=== PATIENT | male | born 1970 | race Caucasian/White ===

== ENCOUNTER 2020-07-09 06:51 | Outpatient (NON) | payer BC, SELFPAY ==
[2020-07-10 13:32] LABS: SARS-CoV-2 RNA PCR Negative
== END 2020-07-09 06:52 ==
LOC: ANHCOVIDDT 06:51
PROVIDERS: PCP Family Medicine; Visit Provider Physician Assistant
DX: Z20.828 Contact with and (suspected) exposure to other viral communicable diseases (principal); J02.9 Acute pharyngitis, unspecified; R53.83 Other fatigue
CPT/HCPCS: 87635; C9803; U0003

== ENCOUNTER 2020-11-17 08:42 | Emergency (ER) | payer BC, SELFPAY ==
[2020-11-17] VITALS (12 sets, daily range): BP systolic 135–159; BP diastolic 82–131; PULSE 55–77; RESP 16–31; TEMP 36.6; O2SAT 96–100
[2020-11-17 09:00] LABS: Basophils Absolute Auto 0.1 K/mm3 (0.0-0.1); Basophils Percent Auto 0.6 % (0.2-1.2); Eosinophils Absolute Auto 0.1 K/mm3 (0-0.3); Eosinophils Percent Auto 1.1 % (0-4.4); Hemoglobin 17.8 g/dL (14.0-18.0); Immature Granulocyte Absolute 0.04 K/mm3 (0.00-0.031); Immature Granulocyte Percent A 0.4 % (0-0.5); Lymphocytes Absolute Auto 2.11 K/mm3 (0.9-3.2); Lymphocytes Percent Auto 19.1 % (18.3-44.2); Mean Corpuscular HGB Conc 34.2 g/dl (32-36); Mean Corpuscular Hemoglobin 30.4 pg (26-34); Mean Corpuscular Volume 88.7 fl (80-100); Mean Platelet Volume 9.8 fl (7.4-10.4); Monocytes Absolute Auto 0.9 K/mm3 (0.1-0.6); Monocytes Percent Auto 8.2 % (2.6-8.5); Neutrophils Absolute Auto 7.8 K/mm3 (1.3-6.7); Neutrophils Percent Auto 70.6 % (45.5-73.1); Platelet Count Result 241 k/mm3 (150-375); Red Blood Count 5.86 M/mm3 (4.6-6.20); White Blood Count 11.1 K/mm3 (4.5-10.0)
--- NOTE | 2020-11-17 09:03 | PC.NURSE ---
Pt unable to urinate at this time
[2020-11-17 09:14] LABS: Alanine Aminotransferase 72 U/L (4-50); Albumin Level 4.6 g/dL (3.5-5.1); Alkaline Phosphatase 77 U/L (38-126); Anion Gap 6 mmol/L (8-16); Aspartate Amino Transferase 60 U/L (17-59); Bilirubin,Total 0.8 mg/dL (0.2-1.3); Blood Urea Nitrogen 19 mg/dL (9-20); Calcium 9.7 mg/dL (8.4-10.2); Carbon Dioxide 26 mmol/L (22-30); Chloride 103 mmol/L (98-107); Estimated CRCL calculation 103 ml/min; Estimated Glomerular Filt Rate > 60; Glucose 123 mg/dL (75-110); Lipase 136 U/L (23-300); Potassium 4.3 mmol/L (3.4-5.0); Sodium 135 mmol/L (137-145)
[2020-11-17 09:20] LABS: Add Urine Microscopic? YES; Appearance Urine Clear (Clear); Bacteria Urine Trace /hpf; Bilirubin Urine Negative (Negative); Blood Urine Negative (Negative); Color Urine Yellow (Yellow); Glucose Urine UA Negative (Negative); Ketones Urine Negative (Negative); Leukocyte Esterase Ur Negative LEU/UL (Negative); Mucus Urine Heavy /lpf; Nitrate Urine Negative (Negative); Protein Urine 1+ mg/dL (Negative); RBC Urine 0-2 /hpf (0-2); Urobilinogen Urine Negative mg/dL (<2.0); WBC Urine 0-3 /hpf
[2020-11-17] MEDS: METOCLOPRAMIDE HCL INJ 10 MG/2 ML VIAL IV PUSH (09:56)
[2020-11-17] MEDS: SODIUM CHLORIDE 0.9% IV 1,000 ML 999 ML IV CONT (09:56)
--- NOTE | 2020-11-17 11:52 | ED.GENADULT ---
HPI - General Adult General Chief complaint: Nausea/Vomiting/Diarrhea Stated complaint: rash/ possible shingles/ maybe COVID Time Seen by Provider: 11/17/20 09:18 Source: patient Mode of arrival: ambulatory Limitations: no limitations History of Present Illness HPI narrative: Patient with hypertension, GERD, psoriasis presents with chief complaint of fatigue, body aches, chills and some episodes of nausea and vomiting that began on night. Patient states on Tuesday he noticed a rash that appeared to be shingles-like to under his left arm. Patient states that he had shingles a year ago and knows that he is at higher risk for them due to being on an injectable immunosuppressive for his psoriasis. Patient denies vomiting presently. He states that he does have some nausea remaining. Patient denies abdominal pain or fever at this time. Patient denies known contact with Covid positive person. Patient denies cough, shortness of breath, or chest pain. Related Data Home Medications Medication Instructions Recorded Confirmed fexofenadine 180 mg tablet 180 mg PO PRN 08/20/19 10/08/19 ixekizumab 80 mg/mL subcutaneous 80 mg SUB-Q MONTHLY 08/20/19 10/08/19 syringe omeprazole magnesium 20 mg 20 mg PO DAILY 08/20/19 10/08/19 tablet,delayed release Allergies Allergy/AdvReac Type Severity Reaction Status Date / Time No Known Allergies Allergy Mild Verified 11/17/20 08:55 Review of Systems Review of Systems: Narrative: CONSTITUTIONAL: Reports fever, chills, or sweats. EYES: Denies visual changes, redness, or discharge. ENT: Denies rhinorrhea, congestion, sore throat, or otalgia. CARDIOVASCULAR: Denies chest pain, palpitations, or edema. RESPIRATORY: Denies cough or dyspnea. GASTROINTESTINAL: Reports nausea and resolved vomiting denies abdominal pain or diarrhea. GENITOURINARY: Denies dysuria or hematuria. SKIN: Reports rash denies itching. MUSCULOSKELETAL: Denies back pain, joint pain, or myalgia. NEUROLOGIC: Denies headache, numbness, dizziness, or weakness. PSYCHIATRIC: Denies anxiety or depression. [facility] Past Medical History Medical History (Updated 11/17/20 @ 12:03 by Clarissa Hickey PA-C) Chronic hip pain, bilateral HTN (hypertension) Hypercholesterolemia Obesity Psoriasis Surgical History Surgical History (Updated 10/31/19 @ 17:07 by Armen Siu MD) History of hip replacement Family History Family History (Updated 08/19/17 @ 07:35 by DOCTOR UNKNOWN) Father Family history of diabetes mellitus in first degree relative Family history of coronary artery disease Family history of chronic obstructive pulmonary disease Mother Family history of malignant neoplasm of breast in first degree relative Social History Social History Smoking status: Former smoker Smoking end date: 09/12/12 Alcohol intake: current Drinks per week: 10 Substance use: never Substance use type: does not use Gender identity (if verbalized by the patient): Male Exam Narrative: Exam Narrative: GENERAL: Well-appearing, well-nourished. Appears tired but nontoxic. HEAD: Normocephalic, atraumatic. EYES: PERRLA and EOMI. ENT: Mucous membranes moist. Bilateral TMs pearly villar nonbulging NECK: Supple. No adenopathy or masses. Range of motion intact CHEST: Clear to auscultation. No respiratory distress. No wheezes rales or rhonchi HEART: Regular rate and rhythm. No murmur heard. Normal peripheral pulses. ABDOMEN: Soft, nontender, nondistended, normal active bowel sounds. EXTREMITIES: Normal range of motion. No edema. SKIN: Shingles-like rash noted under patient's left arm. Warm, dry, no rash. NEURO: No focal deficits. Alert and oriented x3. PSYCH: Normal mood and affect. Course Vital Signs Vital signs: Vital Signs Temperature 97.9 F 11/17/20 08:48 Pulse Rate 74 11/17/20 08:48 Respiratory Rate 19 11/17/20 08:48 Blood Pressure 1
[2020-11-17] MEDS: IBUPROFEN 600 MG TABLET PO (12:02)
[2020-11-18 22:47] LABS: SARS-CoV-2 RNA PCR Negative
== END 2020-11-17 12:12 | disposition home or self-care (01) ==
PROVIDERS: Physician Assistant; Emergency Provider Emergency Medicine; PCP Family Medicine
DX: B02.9 Zoster without complications (principal); B34.9 Viral infection, unspecified; Z20.822 Contact with and (suspected) exposure to COVID-19; I10 Essential (primary) hypertension; K21.9 Gastro-esophageal reflux disease without esophagitis; L40.9 Psoriasis, unspecified; E78.00 Pure hypercholesterolemia, unspecified; Z96.649 Presence of unspecified artificial hip joint; Z87.891 Personal history of nicotine dependence
CPT/HCPCS: 36415; 80053; 81001; 83690; 85025; 96361; 96374; 99284; A9270; C9803; J2765; J7030; U0003; U0005

== ENCOUNTER 2023-01-03 08:04 | Outpatient (CLI) | payer OTHER, SELFPAY ==
--- NOTE | ~2023-01-03 | US_ITS ---
EXAMINATION: US abdomen limited DATE: 01/03/2023 08:45 INDICATION: Abnormal liver function tests TECHNIQUE: Multiple grayscale and Doppler ultrasound images of the abdomen were obtained. COMPARISON: None available FINDINGS: The head and body of the pancreas are normal. The pancreatic tail is obscured by bowel gas. The liver demonstrates increased echogenicity, heterogenous echotexture, and decreased through trans mission. No surface nodularity. Normal hepatopetal flow in the main portal vein. The gallbladder is n ormal with no abnormal wall thickening, pericholecystic fluid or stones. The normal common bile duct measures 4 mm. There was no sonographic Coley sign. IMPRESSION: 1. Diffuse hepatic steatosis. Reviewed, dictated and finalized at location B.
== END 2023-01-03 08:05 | disposition home or self-care (01) ==
PROVIDERS: PCP Family Medicine; Visit Provider Physician Assistant
DX: R74.8 Abnormal levels of other serum enzymes (principal); K76.0 Fatty (change of) liver, not elsewhere classified
CPT/HCPCS: 76705

== ENCOUNTER → 2023-07-13 09:59 | Outpatient (CLI) | payer BC, SELFPAY ==
--- NOTE | ~2023-07-13 | XR_ITS ---
EXAMINATION: XR chest 2V 07/13/2023 10:24 INDICATION: Cough PROCEDURE: 2 view chest COMPARISON: 09/27/2019 FINDINGS: The lungs are clear. The cardiomediastinal silhouette is within normal limits. There are no pleural effusions. There is no pneumothorax suspected. IMPRESSION: 1: NO ACUTE CARDIOPULMONARY DISEASE. Reviewed, dictated and finalized at location B.
== END ==
PROVIDERS: PCP Physician Assistant; Visit Provider Physician Assistant
DX: R05.9 Cough, unspecified (principal)
CPT/HCPCS: 71046

== ENCOUNTER → 2023-08-16 11:53 | Outpatient (CLI) | payer BC, SELFPAY ==
--- NOTE | ~2023-08-16 | XR_ITS ---
Clinical Indication: Cough PA and lateral views of the chest: Comparison: 07/13/2023 Findings: The lungs are clear, without evidence of focal consolidation or pleural effusion. Cardiome diastinal silhouette is within normal limits. Bones and soft tissues are unremarkable. Impression: Normal chest. Reviewed, dictated and finalized at location . 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
== END ==
PROVIDERS: PCP Physician Assistant; Visit Provider Physician Assistant
DX: R05.9 Cough, unspecified (principal)
CPT/HCPCS: 71046

== ENCOUNTER 2023-09-01 13:33 | Outpatient (CLI) | payer BC, SELFPAY | END 2023-09-01 13:34 | disposition home or self-care (01) | LOC: ANHPFT 13:33 | PROVIDERS: PCP Family Medicine; Visit Provider Physician Assistant | DX: R05.3 Chronic cough (principal); J06.9 Acute upper respiratory infection, unspecified | CPT/HCPCS: 94060; 94726; 94729 ==

== ENCOUNTER 2023-12-14 14:17 | Outpatient (CLI) | payer BC, SELFPAY ==
--- NOTE | ~2023-12-14 | XR_ITS ---
XR hip RT 2V w AP pelvis DATE: 12/14/2023 14:41 INDICATION: Right hip pain for one year TECHNIQUE: AP pelvis. AP and lateral views of right hip. COMPARISON: None FINDINGS: Status post bilateral total hip arthroplasty. There is prominent heterotopic ossification a long the superior aspect of both greater trochanters. Normal alignment at the pubic symphysis and sacroiliac joints. No pelvic fracture or bone destruction . No recent fracture or dislocation of the right hip. Status post L4-L5 lumbar laminectomy. Multilevel degenerative disc disease of the lumbar spine. IMPRESSION: Status post bilateral total hip arthroplasty L4-L5 lumbar laminectomy Multilevel degenerative disc disease of the lumbar spine Reviewed, dictated and finalized at location B.
== END 2023-12-14 14:18 ==
PROVIDERS: PCP Family Medicine; Visit Provider Family Medicine
DX: M51.36 Other intervertebral disc degeneration, lumbar region (principal); M25.551 Pain in right hip; Z98.1 Arthrodesis status; Z96.643 Presence of artificial hip joint, bilateral
CPT/HCPCS: 73502

== ENCOUNTER 2024-04-20 15:31 | Outpatient (CLI) | payer BC, SELFPAY ==
[2024-04-20 16:40] LABS: Alanine Aminotransferase 133 U/L (6-50); Albumin Level 4.3 g/dL (3.5-5.1); Alkaline Phosphatase 88 U/L (38-126); Anion Gap 11 mmol/L (4-12); Aspartate Amino Transferase 146 U/L (17-59); Bilirubin,Total 0.5 mg/dL (0.2-1.3); Blood Urea Nitrogen 15 mg/dL (9-20); Calcium 9.6 mg/dL (8.4-10.2); Carbon Dioxide 25 mmol/L (22-30); Chloride 102 mmol/L (98-107); Estimated Glomerular Filt Rate > 60; Glucose 135 mg/dL (65-110); Potassium 4.1 mmol/L (3.4-5.0); Sodium 138 mmol/L (137-145)
[2024-04-20 19:37] LABS: Hemoglobin A1C 6.5 % (<5.7)
== END 2024-04-20 15:32 | disposition home or self-care (01) ==
LOC: ANHLAB 15:33
PROVIDERS: PCP Family Medicine; Visit Provider Physician Assistant
DX: E11.9 Type 2 diabetes mellitus without complications (principal)
CPT/HCPCS: 36415; 80053; 83036

== ENCOUNTER 2024-07-10 07:47 | Outpatient (CLI) | payer BC, SELFPAY ==
--- NOTE | ~2024-07-10 | US_ITS ---
Limited Abdominal Sonogram: Real-time sonographic imaging of the right upper quadrant was performed. Clinical History: Abnormal blood chemistry findings Findings: The liver appears echogenic, with no evidence of mass lesion or bile duct dilatation. Main portal vein demonstrates normal direction of flow. The gallbladder is well distended, and appears no rmal with no evidence of gallstone or wall thickening. The common bile duct measures 6 mm. The visua lized pancreas, aorta, and IVC are unremarkable. Impression: Diffuse fatty infiltration of the liver. Reviewed, dictated and finalized at location M. Impression: Diffuse fatty infiltration of the liver.
== END 2024-07-10 07:48 | disposition home or self-care (01) ==
PROVIDERS: PCP Family Medicine; Visit Provider Nurse Practitioner Family
DX: R79.89 Other specified abnormal findings of blood chemistry (principal); K76.0 Fatty (change of) liver, not elsewhere classified
CPT/HCPCS: 76705

== ENCOUNTER 2024-10-23 15:15 | Outpatient (CLI) | payer OTHER, SELFPAY ==
--- NOTE | ~2024-10-23 | XR_ITS ---
CHEST RADIOGRAPH, PA AND LATERAL CLINICAL HISTORY: R05.9 - Cough, unspecified . COMPARISON: 08/16/2023 TECHNIQUE: PA and lateral views of the chest. FINDINGS The cardiomediastinal silhouette is unremarkable. The lungs are clear. Visualized osseous structures and soft tissues are unremarkable. IMPRESSION: No focal infiltrate or effusion. Reviewed, dictated and finalized at location A. 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
== END 2024-10-23 15:16 | disposition home or self-care (01) ==
LOC: MICIMG 15:17
PROVIDERS: PCP Family Medicine; Visit Provider Student in an Organized Health Care Education/Training Program
DX: R05.9 Cough, unspecified (principal)
CPT/HCPCS: 71046

== ENCOUNTER 2025-02-07 08:00 | Outpatient (NON) | payer OTHER, SELFPAY ==
--- OUTSIDE RECORDS SUMMARY | 2025-02-07 08:05 | XMS_ITS | Clinical Summary ---
Author Organization [facility] Jose Carlosileana hamilton [address] Address [address] [place] [address] Care Team Providers Care Replanting Machine Crew Name Role Phone Armen Siu MD Primary Care Provider [phone] Allergies No known active allergies Medications HYDROcodone-ryan taminophen (NORCO) 5-325 mg tablet Take 1 Tablet by mouth one time as needed for Pain. 4 Active lisinopriL (PRINIVIL) 20 mg tablet Take 20 mg by mouth daily. Active fenofibrate (LOFIBRA) 160 mg Tablet Take 160 mg by mouth daily. Active fluticasone propionate (FLONASE) 50 mcg/spray [place], Suspension nasal inhaler Administer 2 Sprays in each nostril daily. 3 Active fexofenadine (OCTAVIO) 180 mg tablet Take 180 mg by mouth daily. Active melatonin 5 mg Tablet Take by mouth nightly as needed for Insomnia. Active Active Problems No known active problems Encounters Date Type Department Care Team Description 01/31/2025 External Device Data STL ABSTRACTION Provider, Abstract 01/30/2025 External Device Data ST[facility] ABSTRACTION Provider, Abstract 01/23/2025 3:30 PM CDT Office Visit [facility] Oncology and Hematology - [place] [address] [address] Grover Mckeon MD Hereditary hemochromatosis (Primary Dx) 11/28/2024 External Device Data STL ABSTRACTION Provider, Abstract 11/27/2024 External Device Data ST[facility] ABSTRACTION Provider, Abstract 11/21/2024 External Device Data STL ABSTRACTION Provider, Abstract 11/20/2024 External Device Data [facility] ABSTRACTION Provider, Abstract 11/17/2024 External Device Data ST[facility] ABSTRACTION Provider, Abstract 11/17/2024 External Device Data STL ABSTRACTION Provider, Abstract from Last 3 Months Family History Medical History Relation Name Comments No Known Problems Brother COPD Father Breast Cancer Mother Relation Name Status Comments Brother Alive Father Mother Social History Tobacco Use Types Packs/Day Years Used Date Smoking Tobacco: Never Smokeless Tobacco: Current Chew Tobacco Cessation:Ready to Q uit: Not Asked; Counseling Given: Not Answered Alcohol Use Standard Drinks/Week Comments Yes 0 (1 standard drink = 0.6 oz pur e alcohol) 3-4 times weekly Sex and Gender Information Value Date Recorded Sex Assigned at Not on file Legal 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 Gender Identity Not on file Sexual Orientation Not on file Last Filed Vital Signs Vital Sign Reading Time Taken Comments Blood Pressure 147/98 01/23/2025 3:41 PM CDT Pulse 79 01/23/2025 3:36 PM CDT Temperature 36.7 C (98 F) 01/23/2025 3:36 PM CDT Respiratory Rate 16 01/23/2025 3:36 PM CDT Oxygen Saturation 97% 01/23/2025 3:36 PM CDT Inhaled Oxygen Concentration - - Weight 130.9 kg (288 lb 9.6 oz) 01/23/2025 3:36 PM CDT Height 182.9 cm (6') 09/13/2024 2:42 PM PARK MAINTAINER Body Mass Index 39.14 09/13/2024 2:42 PM PARK MAINTAINER Plan of Treatment Upcoming Encounters Date Type Department Care Team (Late st Contact Info) Description 07/26/2025 12:45 PM PARK MAINTAINER Office Visit [facility] Oncology and Hematology - [place] [address] [facility] [address] [place] [address] Grover Mckeon MD [address] [facility] [address] [place] [address] Health Maintenance Due Date Last Done Comments Pre-Diabetes and Diabetes Screening 1970 DTAP/TDAP/TD VACCINES (1 - Tdap) 12/04/1990 HEPATITIS B VACCINES (1 of 3 - 19+ 3-dose series) 12/04/1990 COLORECTAL SCREENING 12/04/2016 Colorectal Cancer Screening 12/04/2016 FIT-DNA Q 3 years 12/04/2016 FIT/FOBT Q 1 year 12/04/2016 Flex Sig/CT Colonography Q 5 years 12/04/2016 ZOSTER VACCINE (1 of 2) 12/04/2021 INFLUENZA VACCINE (#1) 2024 09/28/2019, 2013 Procedures Procedure Name Priority Date/Time Associated Diagnosis Comments CBC WITH DIFFERENTIAL Routine 01/14/2025 2:16 PM CDT IRON, TIBC, AND PERCENT SATURATION Routine 01/14/2025 2:16 PM CDT Hereditary hemochromatosis FERRITIN Routine 01/14/2025 2:16 PM CDT Hereditary hemochromatosis from Last 3 Months Results * (ABNORMAL) IRON, TIBC, AND PERCENT SATURATION (01/14/2025 2:16 PM CDT) Pathologist [facility] IRON 74 50 - 180 mcg/dL [facility] TIBC 398 250 - 425 mcg/dL (calc) [facility] IRON % SATURATION 19(L) 20 - 48 % (calc) [facility] Comment: FASTING:NO FASTING: NO Test Performed at: [facility] [address] Augusta Lang MD Blood 01/14/2025 2:16 PM CDT 01/14/2025 2:18 PM CDT us Grover Mckeon MD CHEMISTRY ORDERABLES Final Resu lt [facility] [phone] [facility] [address] [address] * CBC WITH DIFFERENTIAL (01/14/2025 2:16 PM CDT) WBC 8.4 3.8 - 10.8 Thousand/u L [facility] RBC 5.08 4.20 - 5.80 Million/uL [facility] HEMOGLOBIN 16.1 13.2 - 17.1 g/dL [facility] HEMATOCRIT 48.2 38.5 - 50.0 % [facility] MCV 94.9 80.0 - 100.0 fL [facility] MCH 31.7 27.0 - 33.0 pg [facility] MCHC 33.4 32.0 - 36.0 g/dL [facility] Comment: For adults, a slight decrease in the calculated MCHC value (in the range of 30 to 32 g/dL) is most likely not clinically significant; however, it should be interpreted with caution in correlation with other red cell parameters and the patient's clinical condition. RDW 12.5 11.0 - 15.0 % [facility] PLATELETS 195 140 - 400 Thousand/u L [facility] MPV 10.7 7.5 - 12.5 fL [facility] NEUTROPHIL ABSOLUTE 4,838 1,500 - 7,800 cells/uL [facility] LYMPHOCYTE ABSOLUTE 2,663 850 - 3,900 cells/uL [facility] MONOCYTE ABSOLUTE 680 200 - 950 cells/uL [facility] EOSINOPHIL ABSOLUTE 151 15 - 500 cells/uL [facility] BASOPHILS ABSOLUTE 67 0 - 200 cells/uL [facility] NEUTROPHIL 57.6 % [facility] LYMPHOCYTES 31.7 % [facility] MONOCYTE 8.1 % [facility] EOSINOPHILS 1.8 % [facility] BASOPHILS 0.8 % [facility] Comment: FASTING:NO FASTING: NO Test Performed at: [facility] [address] [place] [address] Augusta Lang MD 01/14/2025 2:16 PM CDT 01/14/2025 2:18 PM CDT us Grover Mckeon MD HEMATOLOGY ORDERABLES Final Res ult [facility] [phone] [employer] [address] [place] [address] [place] [address] * FERRITIN (01/14/2025 2:16 PM CDT) FERRITIN 129 38 - 380 ng/mL [facility] Comment: FASTING:NO FASTING: NO Test Performed at: [facility] [address] [address] Augusta Lang MD Blood 01/14/2025 2:16 PM CDT 01/14/2025 2:18 PM CDT us Grover Mckeon MD CHEMISTRY ORDERABLES Final Resu lt [facility] [phone] [facility] [address] [phone] from Last 3 Months Insurance [facility] OPEN ACCESS O Care Teams Replanting Machine Crew Relationship Specialty Start Date End Date Armen Siu MD [address] [facility] [address] [place] [address] PCP - General Family Practice 10/16/24
--- OUTSIDE RECORDS SUMMARY | 2025-02-07 08:05 | XMS_ITS ---
Author Organization [facility] [place] ([address]) Address [address] [place] [address] Care Team Providers Care Clerical Office Name Role Phone Armen Siu MD Primary Care Provider Unavaila Abdoul Mora Unavailable [phone] [facility], Provider Unavailable Unavailab le REASON FOR VISIT [facility] Encounter Medications Medication SIG (Take, Route, Frequency, Duration) Notes Start Date End Date Status EpiPen 2-Pako 0.3 MG/0.3ML as directed intramuscularly once for 30 days 06/21/2023 Active Cetirizine HCl 10 MG 1 tab(s) orally once a day for 30 days 06/21/2023 Active Fluticasone Propionate 50 MCG/ACT 2 spray(s) in each nostril BID for 30 day(s) 06/21/2023 Active HYDROcodone-Acetami nophen 5/325 MG 1 PO PRN *Please review and pick correct strength-formulat ion from [facility] options. If intended option is not shown, discontinue and re-order from Quick Search* Active NASAL WASHES N/A DIRECTED INTRANASALLY NEEDED for 30 *Please review for potential replacement for e-prescription and drug interaction check* 06/21/2023 Active TALTZ AUTOINJECTOR 80 MG/ML DIRECTED SUBCUTANEOUSLY EVERY 4 WEEKS *Please review for potential replacement for e-prescription and drug interaction check* Active Lumify 0.025 % 1 gtt in each affect ed eye every 8 hours Active Lisinopril 20 MG 1 tab(s) orally once a day Active NASAL WASHES N/A DIRECTED INTRANASALLY NEEDED for 30 *Please review for potential replacement for e-prescription and drug interaction check* 06/08/2023 Active Fluticasone Propionate 50 MCG/ACT 2spray(s) in each nostril bid for 30 day(s) Active Fenofibrate 160 MG 1 tab(s) orally once a day Active predniSONE 20 MG 4 tab(s) orally once a day for 7 days Active Encounters Encounter Location Date Provider Diagnosis [facility] - [address] [address] 02/25/2024 Provider [facility]Migration Plan Of Treatment No Information Progress Notes * Jennifer SUMMERSOB:1970 ([age] yo M)Acc No.[id number]:02/25/2024 Patient: Sergo DRUMMOND Provider: Allyn Monroy :1970 A ge:53 Y S ex:Male Date:02/25/2024 Address:[address] [place], [place] [id number] Pcp:Armen Siu MD Subjective: * Chief Complaints: * 1 . Multum To [facility] Conversion Encounter. * Medical History: * Medications: T aking Fenofibrate 160 MG Tablet 1 tab(s) orally once a day , Taking predniSONE 20 MG Tablet 4 tab(s) orally once a day , Taking NASAL WASHES N/A 1 QUART OF STERILIZED TAP WATER OR DISTILLED WATER, 1 TSP NACL, 1 PINCH OF BAKING SODA DIRECTED INTRANASALLY NEEDED , Notes to Pharmacist: *Please review for potential replacement for e-prescription and drug interaction check*, Taking Fluticasone Propionate 50 MCG/ACT Suspension 2spray(s) in each nostril bid , Taking Lumify 0.025 % Solution 1 gtt in each affected eye every 8 hours , Taking Lisinopril 20 MG Tablet 1 tab(s) orally once a day , Taking TALTZ AUTOINJECTOR 80 MG/ML SOLUTION DIRECTED SUBCUTANEOUSLY EVERY 4 WEEKS , Notes to Pharmacist: *Please review for potential replacement for e-prescription and drug interaction check*, Taking HYDROcodone-Acetaminophen 5/325 MG TABLET 1 PO PRN , Notes to Pharmacist: *Please review and pick correct strength-formulation from [facility] options. If intended option is not shown, discontinue and re-order from Quick Search*, Taking Cetirizine HCl 10 MG Tablet 1 tab(s) orally once a day , Taking Fluticasone Propionate 50 MCG/ACT Suspension 2 spray(s) in each nostril BID , Taking EpiPen 2-Pako 0.3 MG/0.3ML Solution Auto-injector as directed intramuscularly once , Taking NASAL WASHES N/A 1 QUART OF STERILIZED TAP WATER OR DISTILLED WATER, 1 TSP NACL, 1 PINCH OF BAKING SODA DIRECTED INTRANASALLY NEEDED , Notes to Pharmacist: *Please review for potential replacement for e-prescription and drug interaction check* Objective: * Vitals: Assessment: Plan: * Treatment: * Billing Information: * Visit Code: * Procedure Codes: * Electronic signature of Rahda HENNESSY-Migration on 02/07/2025 at 08:05 AM CDT Sign off status: Pending * Provider: Allyn jamison Migration Date: 0 02/25/2024 Generated for Aruna becerril/Med/Shu on: 02/07/2025 08:05 AM CDT
--- OUTSIDE RECORDS SUMMARY | 2025-02-07 08:06 | XMS_ITS | Patient Health Record ---
Author Organization [facility] ([address]) Address [address] [place] [address] Care Team Providers Care Global Program Manager Name Role Phone Armen Siu MD Primary Care Provider Unavaila Abdoul Mora Unavailable [phone] [facility], Provider Unavailable Unavailab le Allergies No Known Allergies Reason For Referral No Information Medications Medication SIG (Take, Route, Frequency, Duration) Notes Start Date End Date Status EpiPen 2-Pako 0.3 MG/0.3ML as directed intramuscularly once for 30 days 06/21/2023 Active Fenofibrate 160 MG 1 tab(s) orally once a day Active Cetirizine HCl 10 MG 1 tab(s) orally once a day for 30 days 06/21/2023 Active Fluticasone Propionate 50 MCG/ACT 2 spray(s) in each nostril BID for 30 day(s) 06/21/2023 Active TALTZ AUTOINJECTOR 80 MG/ML DIRECTED SUBCUTANEOUSLY EVERY 4 WEEKS *Please review for potential replacement for e-prescription and drug interaction check* Active HYDROcodone-Acetami nophen 5/325 MG 1 PO PRN *Please review and pick correct strength-formulat ion from Medispan options. If intended option is not shown, discontinue and re-order from Quick Search* Active Lumify 0.025 % 1 gtt in each affect ed eye every 8 hours Active Lisinopril 20 MG 1 tab(s) orally once a day Active NASAL WASHES N/A DIRECTED INTRANASALLY NEEDED for 30 *Please review for potential replacement for e-prescription and drug interaction check* 06/08/2023 Active Fluticasone Propionate 50 MCG/ACT 2spray(s) in each nostril bid for 30 day(s) Active NASAL WASHES N/A DIRECTED INTRANASALLY NEEDED for 30 *Please review for potential replacement for e-prescription and drug interaction check* 06/21/2023 Active predniSONE 20 MG 4 tab(s) orally once a day for 7 days Active PREDNISONE 20 mg 4 tab(s) orally once a day for 7 days Active FENOFIBRATE 160 mg 1 tab(s) orally once a day Active EPIPEN 2-PAKO 0.3 mg as directed intramuscularly once for 30 days 06/21/2023 Active FLUTICASONE NASAL 50 mcg/inh 2 spray(s) in each nostril BID for 30 day(s) 06/21/2023 Active CETIRIZINE 10 mg 1 tab(s) orally once a day for 30 days 06/21/2023 Active HYDROCODONE-ACETAMI NOPHEN 5/325 mg 1 PO PRN Active LISINOPRIL 20 mg 1 tab(s) orally once a day Active LUMIFY 0.025% 1 gtt in each affect ed eye every 8 hours Active FLUTICASONE NASAL 50 mcg/inh 2spray(s) in each nostril bid for 30 day(s) Active Immunizations Vaccine Route Administration Date Status Comme nts NOC PedvaxHIB IM Intramuscular 06/30/2023 Administered NOC Pneumovax 23 IM Intramuscular 06/30/2023 Administered Social History Tobacco Use: Social History Observation Description Date Details (start date - stop date) Unknown Smoking Smart Form: Question Answer Notes Are you a: Uses tobacco in other forms Additional Findings:Tobacco User Chews fine cut tobacco Additional Findings:Tobacco Non-User Ex-cigarett e smoker Problems Problem Type SNOMED Code ICD Code Onset Dates Problem Status W/U Status Risk Notes Problem Hyperlipidemia (40791834) Hyperlipidemia, unspecified (E78.5) Active confirmed Problem Chronic allergic conjunctivitis (74944220) Other chronic allergic conjunctivitis (H10.45) Active confirmed Problem Allergic rhinitis caused by pollen (disorder) (21820722) Allergic rhinitis due to pollen (J30.1) Active confirmed Problem Allergic rhinitis (10289434) Other allergic rhinitis (J30.89) Active confirmed Problem Chronic sinusitis (68259705) Other chronic sinusitis (J32.8) Active confirmed Problem Psoriasis (2422784) Psoriasis, unspecified (L40.9) Active confirmed Problem Chronic fatigue syndrome (disorder) (78528051) Chronic fatigue, unspecified (R53.82) Active confirmed Problem Allergic rhinitis caused by animal hair and dander (860524360860156) Allergic rhinitis due to animal (cat) (dog) hair and dander (J30.81) Active confirmed Problem Chronic sinusitis (55234343) Other chronic sinusitis (J32.8) Active confirmed Problem Essential hypertension (67408572) Essential (primary) hypertension (I10) Active confirmed Problem Malaise (273340908) Other malaise (R53.81) Active confirmed Problem Fatigue (17066048) Other fatigue (R53.83) Active confirmed Problem Chronic conjunctivitis (23026564) Unspecified chronic conjunctivitis, bilateral (H10.403) Active confirmed Encounters Encounter Location Date Provider Diagnosis [address] [address] 02/25/2024 Provider [facility] Plan Of Treatment Pending Test Test Name Order Date COMPREHENSIVE METABOLIC PANEL 10/13/2023 URINALYSIS, COMPLETE W/REFLEX TO CULTURE 10/13/2023 TSH W/REFLEX TO FT4 10/13/2023 HEMOGLOBIN A1c 10/13/2023 CBC (INCLUDES DIFF/PLT) 10/13/2023 Insurance Providers Payer Name Payer Address Payer Phone Subscriber Number Group Number Insured Name Patient Relationship to Insured Coverage Start Date Coverage End Date [facility] [id number] [place] [address] [id number] Chey Summers Spouse - patient is the spouse of the insured 3 Medical (General) History Medical History History ICD Code Essential (primary) hypertension I10 Other chronic sinusitis J32.8 Essential (primary) hypertension I10 Hypertrophy of nasal turbinates J34.3 Psoriasis, unspecified L40.9 Hyperlipidemia, unspecified E78.5 Chronic rhinitis J31.0 Unspecified chronic conjunctivitis, bila teral H10.403 Surgical History Surgery Date(Month/Year) triple laminectomy 2013 right total hip arthroplasty 2017 left total hip arthroplasty 2019 septoplasty Hospitalization History Reason Date(Month/Year) shingles 2020
--- OUTSIDE RECORDS SUMMARY | 2025-02-07 08:06 | XMS_ITS ---
Author Organization [facility] [employer] [place] ([address]) Address [address] [place] [address] Care Team Providers Care Choir Director Name Role Phone Armen Siu MD Primary Care Provider Abdoul Blankenship [phone] REASON FOR VISIT PAYROLL COORDINATOR Weight Loss Encounters Encounter Location Date Provider Diagnosis [facility] ([address]) [address] [place] [address] 10/24/2023 Abdoul Crabtree Plan Of Treatment No Information Progress Notes * Jennifer SUMMERSOB:1970 ([age] yo M)Acc No.[id number]:10/24/2023 PAYROLL COORDINATOR Weight Loss Patient: Sergo DRUMMOND Provider: Allyn Crabtree MD :1970 A ge:52 Y S ex:Male Date:10/24/2023 Address:[address] [place], [place] [address] Pcp:Armen Siu MD Subjective: * Chief Complaints: * 1 . PAYROLL COORDINATOR Weight Loss. * Medical History: Objective: * Vitals: Assessment: Plan: * Treatment: * Billing Information: * Visit Code: * Procedure Codes: * Electronic signature of El Crabtree MD, FAAAAI on 02/07/2025 at 08:06 AM CDT Sign off status: Pending * Provider: Allyn Crabtree MD Date: 0 10/24/2023 Generated for Aruna becerril/Med/Shu on: 0 02/07/2025 08:06 AM CDT
--- OUTSIDE RECORDS SUMMARY | 2025-02-07 08:07 | XMS_ITS | Referral Summary ---
Author Organization [facility] Address [address] [place] [address] Care Team Providers Care Line Analyst Name Role Phone Armen Siu MD Primary Care Provider Allergies Active Allergy Reactions Criticality Noted Date Comments No Known Allergies Other (See comments) Low 019 Reaction: Medications lisinopril (PRINIVIL,ZESTRIL ) 20 mg tablet 9 Active TALTZ AUTOINJECTOR auto-injector every 30 (thirty) days 9 Active fenofibrate (TRIGLIDE) 160 mg tablet 9 Active fluticasone propionate (FLONASE) 50 mcg/actuation nasal spray SHAKE LQ AND U 2 SPRAYS IEN QD 5 9 Active omeprazole (PriLOSEC) 20 mg capsule Take 20 mg by mouth daily as needed Active aspirin 81 mg enteric coated tablet Take 81 mg by mouth daily Active gabapentin (NEURONTIN) 300 mg capsule Start by taking one tablet nightly. Slowly titrate to take one tablet three times daily. 90 capsule 0 Active Active Problems Problem Noted Date Diagnosed Date Herpes zoster without complication 09/29/2019 Assessment & Plan (09/29/2019 11:26 AM ASSOCIATE AUTOMATION ENGINEER): Pain preceded fever and then rash on . Patient has history of chicken pox. There are no obvious vesicular lesions on exam; however, ID thinks this is zoster. Furthermore, infectious work-up thus far has been unrevealing--blood cultures NGTD, urinalysis bland, CXR clear. - valacyclovir 1000 q8h x 7 days - gabapentin 300 mg nightly - prn ibuprofen at home - lidocaine patches - will provide short script for norco - patient and concerned about potential drowsiness side effect with gabapentin at work. Thus will recommend slow uptitration of medication. Avascular necrosis of bone 06/23/2016 Leg pain 11/24/2009 Low back pain 11/24/2009 Hyperlipidemia Assessment & Plan (09/29/2019 11:27 AM ASSOCIATE AUTOMATION ENGINEER): Continue fenofibrate Assessment & Plan (09/28/2019 3:27 PM ASSOCIATE AUTOMATION ENGINEER): Continue fenofibrate Assessment & Plan (09/28/2019 6:05 AM ASSOCIATE AUTOMATION ENGINEER): Continue fenofibrate Hypertension Assessment & Plan (09/29/2019 11:27 AM ASSOCIATE AUTOMATION ENGINEER): Continue lisinopril Assessment & Plan (09/28/2019 3:27 PM ASSOCIATE AUTOMATION ENGINEER): Continue lisinopril Assessment & Plan (09/28/2019 6:05 AM ASSOCIATE AUTOMATION ENGINEER): Continue lisinopril Resolved Problems Problem Noted Date Diagnosed Date Resolved Date Pain 09/29/2019 10/03/2019 Assessment & Plan (09/29/2019 11:27 AM ASSOCIATE AUTOMATION ENGINEER): Acute pain 2/2 herpes zoster. - management as above Immunizations Immunization Administration Dates Next Due Influenza, Quadrivalent, Spl it, Preservative Free, Intramuscular 09/28/2019 Influenza, Trivalent, IM (MDV) 06/20/2014 Influenza, Unspecified 07/30/2016 Social History Tobacco Use Types Packs/Day Years Used Date Smoking Tobacco: Former Alcohol Use Standard Drinks/Week Comments Yes 0 (1 standard drink = 0.6 oz pur e alcohol) Personal Safety Answer Date Recorded Getting School Help Needed Not on file 11/25 Sex and Gender Information Value Date Recorded Sex Assigned at Not on file Legal Sex Male 8:27 AM ASSOCIATE AUTOMATION ENGINEER Gender Identity Not on file Sexual Orientation Not on file Last Filed Vital Signs Vital Sign Reading Time Taken Comments Blood Pressure 130/76 09/29/2019 1:55 PM ASSOCIATE AUTOMATION ENGINEER Pulse 62 09/29/2019 1:55 PM ASSOCIATE AUTOMATION ENGINEER Temperature 36.7 C (98.1 F) 09/29/2019 1:55 PM ASSOCIATE AUTOMATION ENGINEER Respiratory Rate 18 09/29/2019 1:55 PM ASSOCIATE AUTOMATION ENGINEER Oxygen Saturation 97% 09/29/2019 1:55 PM ASSOCIATE AUTOMATION ENGINEER Inhaled Oxygen Concentration - - Weight 132 kg (291 lb 1.6 oz) 09/28/2019 5:58 AM ASSOCIATE AUTOMATION ENGINEER Height 182.9 cm (6') 09/28/2019 5:58 AM ASSOCIATE AUTOMATION ENGINEER Body Mass Index 39.48 09/28/2019 5:58 AM ASSOCIATE AUTOMATION ENGINEER Plan of Treatment Not on file Insurance Training Advisor ACCESS [employer] ACCESS Advance Directives For more information, please contact: [phone] * Full Code (Latest Code Status on File) Date Activated Date Inactivated Comments 09/28/2019 6:01 AM 09/29/2019 10:20 PM Care Teams Line Analyst Relationship Specialty Start Date End Date Armen Siu MD [address] [facility] [address] [place] [address] PCP - General 08/01/17
--- OUTSIDE RECORDS SUMMARY | 2025-02-07 08:07 | XMS_ITS | Clinical Summary ---
Author Organization [facility] Address [address] [place] [address] Care Team Providers Care Green Plumber Name Role Phone Armen Siu MD Primary [...] 09/29/2019 Assessment & Plan (09/29/2019 11:26 AM DIRECTOR LIFE SALES): Pain preceded fever and then rash on [...] Hyperlipidemia Assessment & Plan (09/29/2019 11:27 AM DIRECTOR LIFE SALES): Continue fenofibrate Assessment & Plan (09/28/2019 3:27 PM DIRECTOR LIFE SALES): Continue fenofibrate Assessment & Plan (09/28/2019 6:05 AM DIRECTOR LIFE SALES): Continue fenofibrate Hypertension Assessment & Plan (09/29/2019 11:27 AM DIRECTOR LIFE SALES): Continue lisinopril Assessment & Plan (09/28/2019 3:27 PM DIRECTOR LIFE SALES): Continue lisinopril Assessment & Plan (09/28/2019 6:05 AM DIRECTOR LIFE SALES): Continue lisinopril Resolved Problems Problem Noted Date Diagnosed Date Resolved Date Pain 09/29/2019 10/03/2019 Assessment & Plan (09/29/2019 11:27 AM DIRECTOR LIFE SALES): Acute pain 2/2 herpes zoster. - management as above Immunizations Immunization Administration Dates Next Due Influenza, Quadrivalent, Spl it, Preservative Free, Intramuscular 09/28/2019 Influenza, Trivalent, IM (MDV) 06/20/2014 Influenza, Unspecified 07/30/2016 Medical History Medical History Date Comments Hyperlipidemia Hypertension Psoriasis Family History Medical History Relation Name Comments Cancer Father Family history of malignant neoplasm - (Added by TW Conv) Diabetes Father Family history of diabetes mellitus - (Added by TW Conv) Hypertension Father Family history of hypertension - (Added by TW Conv) Lung disease Father Family history of lung disease - (Added by TW Conv) Cancer Mother Family history of malignant neoplasm - (Added by TW Conv) Relation Name Status Comments Father Mother Social History Tobacco Use Types Packs/Day Years Used Date Smoking Tobacco: Former Alcohol Use Standard Drinks/Week Comments Yes 0 (1 standard drink = 0.6 oz pur e alcohol) Personal Safety Answer Date Recorded Getting School Help Needed Not on file 11/25 Sex and Gender Information Value Date Recorded Sex Assigned at Not on file Legal Sex Male 8:27 AM DIRECTOR LIFE SALES Gender Identity Not on file Sexual Orientation Not on file Obstetrics History Last Filed Vital Signs Vital Sign Reading Time Taken Comments Blood Pressure 130/76 09/29/2019 1:55 PM DIRECTOR LIFE SALES Pulse 62 09/29/2019 1:55 PM DIRECTOR LIFE SALES Temperature 36.7 C (98.1 F) 09/29/2019 1:55 PM DIRECTOR LIFE SALES Respiratory Rate 18 09/29/2019 1:55 PM DIRECTOR LIFE SALES Oxygen Saturation 97% 09/29/2019 1:55 PM DIRECTOR LIFE SALES Inhaled Oxygen Concentration - - Weight 132 kg (291 lb 1.6 oz) 09/28/2019 5:58 AM DIRECTOR LIFE SALES Height 182.9 cm (6') 09/28/2019 5:58 AM DIRECTOR LIFE SALES Body Mass Index 39.48 09/28/2019 5:58 AM DIRECTOR LIFE SALES Plan of Treatment Not on file Insurance [employer] ACCESS [employer] ACCESS Advance Directives For more information, please contact: [phone] * Full Code (Latest Code Status on File) Date Activated Date Inactivated Comments 09/28/2019 6:01 AM 09/29/2019 10:20 PM Care Teams Green Plumber Relationship Specialty Start Date End Date Armen Siu MD [address] [facility] [address] [place] [address] PCP - General 08/01/17
== END 2025-02-07 08:01 | disposition home or self-care (01) ==
LOC: ANHGOSHLAB 08:01
PROVIDERS: PCP Family Medicine; Visit Provider Otolaryngology
DX: J32.9 Chronic sinusitis, unspecified (principal); J31.0 Chronic rhinitis
CPT/HCPCS: 87070; 87075; 87205

== ENCOUNTER 2025-06-14 07:21 | Outpatient (CLI) | payer OTHER, SELFPAY ==
--- NOTE | ~2025-06-14 | US_ITS ---
US right upper quadrant Indication: K74.60 - Unspecified cirrhosis of liver Comparison: None Technique: Katz-scale and color Doppler images were obtained. Findings: LIVER: Moderate increased echogenicity of the liver. Mild nodularity of the liver contours. . The liver measures 18.9 cm. GALLBLADDER/BILIARY: Unremarkable.No cholelithiais, wall thickening or pericholecystic fluid. No biliary dilatation. CBD 3.6 mm. Tipton sign negative. PANCREAS: Pancreas limited by bowel gas. Right Kidney: The right kidney was not imaged. Impression: Mild cirrhotic disease of the liver Reviewed, dictated and finalized at location P. Impression: Mild cirrhotic disease of the liver
== END 2025-06-14 07:22 | disposition home or self-care (01) ==
PROVIDERS: PCP Family Medicine; Visit Provider Nurse Practitioner Family
DX: K74.60 Unspecified cirrhosis of liver (principal)
CPT/HCPCS: 76705

== ENCOUNTER 2025-07-16 14:15 | Outpatient (RCR) | payer OTHER, SELFPAY ==
[2025-06-27 14:50] VITALS: BMI 36.3
[2025-06-27 14:52] VITALS: BMI 36.3
--- NOTE | 2025-06-27 16:48 | PCDIET ---
1016/25: MNT consult completed.
== END 2025-08-12 10:56 | disposition home or self-care (01) ==
LOC: ANHDMC 14:15
PROVIDERS: PCP Family Medicine; Visit Provider Internal Medicine
DX: E11.65 Type 2 diabetes mellitus with hyperglycemia (principal); E66.9 Obesity, unspecified; Z71.89 Other specified counseling; Z71.3 Dietary counseling and surveillance
CPT/HCPCS: 97802; G0108

== ENCOUNTER 2025-08-07 09:53 | Outpatient (CLI) | payer OTHER, SELFPAY ==
[2025-08-07 10:12] LABS: Hematocrit 47.2 % (42.0-52.0); Hemoglobin 15.9 g/dL (14.0-18.0); Immature Granulocyte Percent A 0.4 % (0-0.5); Immature Platelet Fraction Pct 4.5 % (0.9-11.2); Lymphocytes Absolute Auto 2.13 K/mm3 (0.9-3.2); Mean Corpuscular HGB Conc 33.7 g/dl (32-36); Mean Corpuscular Hemoglobin 32.1 pg (26-34); Mean Corpuscular Volume 95.4 fl (80-100); Nucleated Red Blood Cells Absolute Auto 0.000 K/mm3 (0.0-0.012); Nucleated Red Blood Cells Perc 0.0 % (0.0-0.2); Platelet Count Result 134 k/mm3 (150-375); Red Blood Count 4.95 M/mm3 (4.6-6.20); White Blood Count 7.0 K/mm3 (4.5-10.0)
--- OUTSIDE RECORDS SUMMARY | 2025-08-07 10:15 | XMS_ITS | Encounter Summary ---
Author Organization [facility] Address [address] [place] [address] Care Team Providers Care Inside Outside Sales Representative Name Role Phone Armen Siu MD Primary Care Provider [phone] Encounter Details Date Type Department Care Team (Late st Contact Info) Description 08/07/2025 10:15 AM TAXATION CONSULTANT Office Visit [facility] Oncology and Hematology - [place] [address] [facility] [address] [place] [address] Grover Mckeon MD [address] [facility] [address] [place] [address] Arrived Social History Tobacco Use Types Packs/Day Years [...] on file Legal Sex Male 11:12 AM TAXATION CONSULTANT Gender Identity Not on file Sexual Orientation Not on file documented as of this encounter Last Filed Vital Signs Vital Sign Reading Time Taken Comments Blood Pressure 139/89 08/07/2025 10:26 AM TAXATION CONSULTANT Pulse 86 08/07/2025 10:26 AM TAXATION CONSULTANT Temperature 36.3 C (97.3 F) 08/07/2025 10:26 AM TAXATION CONSULTANT Respiratory Rate 16 08/07/2025 10:2 6 AM TAXATION CONSULTANT Oxygen Saturation 97% 08/07/2025 10: 26 AM TAXATION CONSULTANT Inhaled Oxygen Concentration - - Weight 118.8 kg (261 lb 12.8 oz) 2024 10:26 AM TAXATION CONSULTANT Height - - Body Mass Index 35.51 09/13/2024 2:42 PM TAXATION CONSULTANT documented in this encounter Plan of Treatment Not on file documented as of this encounter Visit Diagnoses Not on filedocumented in this encounter Care Teams Inside Outside Sales Representative Relationship Specialty Start Date End Date Armen Siu MD [address] [facility] [address] [place] [address] PCP - General Family Practice 10/16/24 documented as of this encounter
--- OUTSIDE RECORDS SUMMARY | 2025-08-07 10:33 | XMS_ITS | Clinical Summary ---
Author Organization [facility] Address [address] [place] [address] Care Team Providers Care Blackjack Supervisor Name Role Phone Armen Siu MD Primary [...] 09/29/2019 Assessment & Plan (09/29/2019 11:26 AM MOLD MAKING SUPERVISOR): Pain preceded fever and then rash on [...] Hyperlipidemia Assessment & Plan (09/29/2019 11:27 AM MOLD MAKING SUPERVISOR): Continue fenofibrate Assessment & Plan (09/28/2019 3:27 PM MOLD MAKING SUPERVISOR): Continue fenofibrate Assessment & Plan (09/28/2019 6:05 AM MOLD MAKING SUPERVISOR): Continue fenofibrate Hypertension Assessment & Plan (09/29/2019 11:27 AM MOLD MAKING SUPERVISOR): Continue lisinopril Assessment & Plan (09/28/2019 3:27 PM MOLD MAKING SUPERVISOR): Continue lisinopril Assessment & Plan (09/28/2019 6:05 AM MOLD MAKING SUPERVISOR): Continue lisinopril Resolved Problems Problem Noted Date Diagnosed Date Resolved Date Pain 09/29/2019 10/03/2019 Assessment & Plan (09/29/2019 11:27 AM MOLD MAKING SUPERVISOR): Acute pain 2/2 herpes zoster. - management [...] on file Legal Sex Male 8:27 AM MOLD MAKING SUPERVISOR Gender Identity Not on file Sexual Orientation Not on file Last Filed Vital Signs Vital Sign Reading Time Taken Comments Blood Pressure 130/76 09/29/2019 1:55 PM MOLD MAKING SUPERVISOR Pulse 62 09/29/2019 1:55 PM MOLD MAKING SUPERVISOR Temperature 36.7 C (98.1 F) 09/29/2019 1:55 PM MOLD MAKING SUPERVISOR Respiratory Rate 18 09/29/2019 1:55 PM MOLD MAKING SUPERVISOR Oxygen Saturation 97% 09/29/2019 1:55 PM MOLD MAKING SUPERVISOR Inhaled Oxygen Concentration - - Weight 132 kg (291 lb 1.6 oz) 09/28/2019 5:58 AM MOLD MAKING SUPERVISOR Height 182.9 cm (6') 09/28/2019 5:58 AM MOLD MAKING SUPERVISOR Body Mass Index 39.48 09/28/2019 5:58 AM MOLD MAKING SUPERVISOR Plan of Treatment Not on file Insurance ANTHEM ACCESS ANTHEM ACCESS Advance Directives For more information, please contact: [phone] * Full Code (Latest Code Status on File) Date Activated Date Inactivated Comments 09/28/2019 6:01 AM 09/29/2019 10:20 PM Care Teams Blackjack Supervisor Relationship Specialty Start Date End Date Armen Siu MD [address] [facility] [address] [place] [address] PCP - General 08/01/17
--- OUTSIDE RECORDS SUMMARY | 2025-08-07 10:33 | XMS_ITS | Clinical Summary ---
Author Organization [facility] Illrosai joy Sia Address [address] [place] [address] Care Team Providers Care Journeyman Pipe Fitter Name Role Phone Armen Siu MD Primary Care Provider Allergies No known active allergies Medications HYDROcodone-ryan taminophen (NORCO) 5-325 mg tablet Take 1 Tablet by mouth one time as needed for Pain. 4 Active lisinopriL (PRINIVIL) 20 mg tablet Take 20 mg by mouth daily. Active fenofibrate (LOFIBRA) 160 mg Tablet Take 160 mg by mouth daily. Active fluticasone propionate (FLONASE) 50 mcg/spray [place], Suspension nasal inhaler Administer 2 Sprays in each nostril daily. 3 Active fexofenadine (OCTAVIO) 180 mg tablet Take 180 mg by mouth daily. Active melatonin 5 mg Tablet Take by mouth nightly as needed for Insomnia. Active Mounjaro 7.5 mg/0.5 mL Pen Injector Inject 10 mg by subcutaneous injection every 7 days. 5 Active Active Problems No known active problems Encounters Date Type Department Care Team Description 08/07/2025 10:15 AM COPIER FI[employer] SERVICE TECHNICIAN Office Visit [facility] Oncology and Hematology - [place] [address] [address] Grover Mckeon MD Arrived 07/30/2025 External Device Data STL ABSTRACTION Provider, Abstract 07/17/2025 External Device Data ST[place] ABSTRACTION Provider, Abstract 07/10/2025 External Device Data ST[place] ABSTRACTION Provider, Abstract [...] on file Legal Sex Male 11:12 AM [employer] FI[employer] SERVICE TECHNICIAN Gender Identity Not on file Sexual Orientation Not on file Last Filed Vital Signs Vital Sign Reading Time Taken Comments Blood Pressure 139/89 08/07/2025 10:26 AM [employer]IER FI[employer] SERVICE TECHNICIAN Pulse 86 08/07/2025 10:26 AM COPIER FIELD SERVICE TECHNICIAN Temperature 36.3 C (97.3 F) 08/07/2025 10:26 AM COPIER FIELD SERVICE TECHNICIAN Respiratory Rate 16 08/07/2025 10:2 6 AM COPIER FIELD SERVICE TECHNICIAN Oxygen Saturation 97% 08/07/2025 10: 26 AM [employer]IER FIELD SERVICE TECHNICIAN Inhaled Oxygen Concentration - - Weight 118.8 kg (261 lb 12.8 oz) 2024 10:26 AM COPIER FIELD SERVICE TECHNICIAN Height 182.9 cm (6') 09/13/2024 2:42 PM COPIER FI[employer] SERVICE TECHNICIAN Body Mass Index 35.51 09/13/2024 2:42 PM COPIER FIELD SERVICE TECHNICIAN Plan of Treatment Health Maintenance Due Date Last Done Comments Pre-Diabetes and Diabetes Screening 1971 DTAP/TDAP/TD VACCINES (1 - Tdap) 12/04/1990 HEPATITIS B VACCINES (1 of 3 - 19+ 3-dose series) 12/04/1990 COLORECTAL SCREENING 12/04/2016 Colorectal Cancer Screening 12/04/2016 FIT-DNA Q 3 years 12/04/2016 FIT/FOBT Q 1 year 12/04/2016 Flex Sig/CT Colonography Q 5 years 12/04/2016 ZOSTER VACCINE (1 of 2) 12/04/2021 Preventative Visit- Commercial 09/12/2024 INFLUENZA VACCINE (#1) 2025 09/28/2019, 2013 Procedures Procedure Name Priority Date/Time Associated Diagnosis Comments IRON, TIBC, AND PERCENT SATURATION Routine 08/03/2025 7:08 AM [employer]IER FIELD SERVICE TECHNICIAN Hereditary hemochromatosis FERRITIN Routine 08/03/2025 7:08 AM COPIER FIELD SERVICE TECHNICIAN Hereditary hemochromatosis from Last 3 Months Results * IRON, TIBC, AND PERCENT SATURATION (08/03/2025 7:08 AM COPIER FIELD SERVICE TECHNICIAN) IRON 95 50 - 180 mcg/dL [facility] TIBC 365 250 - 425 mcg/dL (calc) [facility] IRON % SATURATION 26 20 - 48 % (calc) [facility] Comment: Test Performed at: [facility] [address] [facility] [place] [address] Augusta Lang MD Blood 08/03/2025 7:08 AM COPIER FIELD SERVICE TECHNICIAN 08/03/2025 7:09 AM COPIER FIELD SERVICE TECHNICIAN Grover Mckeon MD CHEMISTRY ORDERABLES Final Resu lt [facility] [phone] [facility] [employer] [place] [address] * (ABNORMAL) FERRITIN (08/03/2025 7:08 AM COPIER FIELD SERVICE TECHNICIAN) FERRITIN 399(H) 38 - 380 ng/mL [facility] Comment: [facility] Performed at: [facility] [place] [address] Augusta Lang MD Blood 08/03/2025 7:08 AM COPIER FIELD SERVICE TECHNICIAN 08/03/2025 7:09 AM COPIER FIELD SERVICE TECHNICIAN Grover Mckeon MD CHEMISTRY ORDERABLES Final Resu lt [facility] [phone] [facility] [place] [address] from Last 3 Months Insurance [employer] OPEN ACCESS HMO Care Teams Journeyman Pipe Fitter Relationship Specialty Start Date End Date Armen Siu MD [address] [facility] [address] [place] [id number] PCP - General Family Practice 10/16/24
== END 2025-08-07 09:54 | disposition home or self-care (01) ==
LOC: ANHLAB 09:54
PROVIDERS: PCP Family Medicine; Visit Provider Internal Medicine Hematology & Oncology
DX: E83.110 Hereditary hemochromatosis (principal)
CPT/HCPCS: 36415; 85025; 85055